=== PATIENT | female | born 1985 ===

== ENCOUNTER 2017-11-15 11:15 | Inpatient (IN) | payer OTHER ==
[~2017-11-15] VITALS: Ht 167.6 cm; Wt 3.2 kg
[2017-11-15] MEDS ORDERED: PRENATABS RX T1 EACH PO (14:00)
== END 2017-11-18 18:29 | DRG 766 ==
LOC: LDR 11-16 10:02 → O/R 11-16 13:35 → OB/GYN 11-16 14:45
PROVIDERS: Obstetrics & Gynecology
PROC: 0UT70ZZ Resection of Bilateral Fallopian Tubes, Open Approach (ICD-10-PCS; 2017-11-16)
PROC: 4A1HXCZ Monitoring of Products of Conception, Cardiac Rate, External Approach (ICD-10-PCS; 2017-11-16)
PROC: 4A033R1 Measurement of Arterial Saturation, Peripheral, Percutaneous Approach (ICD-10-PCS; 2017-11-16)
PROC: 10D00Z1 Extraction of Products of Conception, Low, Open Approach (ICD-10-PCS; principal; 2017-11-16 12:00)
DX: O34.211 Maternal care for low transverse scar from previous cesarean delivery (principal); Z3A.38 38 weeks gestation of pregnancy; Z37.0 Single live birth; Z30.2 Encounter for sterilization; Z64.1 Problems related to multiparity